=== PATIENT | female | born 1940 | race Caucasian/White ===

== ENCOUNTER 2016-11-24 12:39 | Day surgery (SDC) | payer MEDICARE ==
[~2016-11-24 12:39] MED LIST: CHOL200047 PO; GING250C PO; GLUC100016 PO; LACT1CAP65 PO; LEVO88TA4 PO; Lidocaine Topical 2% 30 mL Jelly ONE; MAGN300C PO; OMEG500C PO; OMEP20TA86 PO
[2017-01-12] MEDS ORDERED: ASPI-973 PO (10:32)
[2017-01-12] MEDS ORDERED: MULT-1018 PO (10:32)
[2017-01-12] MEDS ORDERED: ASCO-294 PO (10:32)
== END 2016-11-24 23:59 | disposition home or self-care (01) ==
LOC: END 12:39
PROVIDERS: ATTEND Surgery
DX: K44.9 Diaphragmatic hernia without obstruction or gangrene (principal); K21.9 Gastro-esophageal reflux disease without esophagitis

== ENCOUNTER 2017-01-13 05:32 | Day surgery (SDC) | payer MEDICARE ==
[2017-01-13] VITALS (12 sets, daily range): BP systolic 127–150; BP diastolic 62–94; PULSE 60–81; RESP 11–18; O2SAT 93–99
[~2017-01-13] VITALS: Ht 177.8 cm; Wt 84.5 kg
[2017-01-13] MEDS: Lactated Ringer's 1,000 ML IV SCH ×3 (05:00→08:13)
[~2017-01-13 05:32] MED LIST changes: +ASCO-294 PO; +ASPI-973 PO; -CHOL200047 PO; -LACT1CAP65 PO; -Lidocaine Topical 2% 30 mL Jelly ONE; -MAGN300C PO; +MULT-1018 PO
[2017-01-13] MEDS ORDERED: Lidocaine PF 1% 30 mL Inj ONE (05:33)
[2017-01-13] MEDS ORDERED: Rocuronium 10 mg/mL 5 mL Inj ONE (05:33)
[2017-01-13] MEDS ORDERED: MetoCLOpramide 5 mg/mL 2 mL Inj ONE (05:33)
[2017-01-13] MEDS ORDERED: Succinylcholine Chloride 20 mg/mL 5 mL Inj ONE (05:33)
[2017-01-13] MEDS ORDERED: Dexamethasone 4 mg/mL Inj ONE (05:33)
[2017-01-13] MEDS ORDERED: fentaNYL-PF 50 mCg/mL 2 mL Inj ONE (05:33)
[2017-01-13] MEDS ORDERED: Vasopressin 20 Unit/mL Inj ONE (05:33)
[2017-01-13] MEDS ORDERED: HYDROmorphone 2 mg/mL Inj ONE (05:33)
[2017-01-13] MEDS ORDERED: hydrALAZINE 20 mg/mL Inj ONE (05:33)
[2017-01-13] MEDS ORDERED: Propofol 10,000 mCg/mL 20 mL Inj ONE (05:33)
[2017-01-13] MEDS ORDERED: CeFAZolin Inj 2 GM in IV Premix 1 EACH IV ONE (06:00)
--- NOTE | 2017-01-13 07:19 | PCM.HPANE ---
Patient Data Date of Service: Jan 13, 2017 Surgeon Admitting Provider: Attending Provider:Libby Eubanks MD Primary Care Physician:Manuelito Marr MD Other Provider:Chuck Bowles Anesthesia Reason for Visit Laparoscopic Hiatal Hernia Repair Ht/WT & BMI Height (Feet): 5 Height (Inches): 10.00 Weight (Kilograms): 82.6 Body Mass Index 26.00 Allergies Coded Allergies: cortisone (Unverified Allergy, Unknown, UNKNOWN, 01/12/17) Past Anesthesia History Anesthesia History: Denies:: Abnormal Airway, Anesthesia Reactions, Difficult Intubation, Fam Anesthesia Reaction, Fam Malignant Hypertherm, Malignant Hyperthermia Diabetes History Hx Diabetes?: No MRSA MRSA: No Medications Blood Thinner: Aspirin Hypertension Medication: No Home Meds Incl Beta Chidi: No Reported Medications Ascorbate Calcium (Vitamin C)500 Mg [id number] Mg PO DAILY 01/12/17 Aspirin 81 Mg Ndubed38 Mg PO DAILY Ref 0 01/12/17 Multivitamin (Multi Vitamin Daily)1 Each Tablet1 Each PO DAILY 30 Days Ref 0 01/12/17 Levothyroxine 88 Mcg Htndwy72 Mcg PO DAILY Ref 0 03/16/16 [place]-3 Fatty Acids (Fish Oil)500 Mg Capsule.dr500 Mg PO DAILY 02/04/16 Glucosamine Sulfate 2Kcl (Glucosamine)1,000 Mg Tablet1,000 Mg PO BID 02/27/14 Kay Root (Kay)250 Mg Obxyypj393 Mg PO DIRECTED 02/27/14 Omeprazole 20 Mg Tablet.dr40 Mg PO DAILY 30 Days Ref 0 02/27/14 Discontinued Reported Medications Lactobacillus Acidophilus (Probiotic)1 Each Capsule1 Each PO DAILY 03/16/16 Cholecalciferol (Vitamin D3) (Vitamin D3)2,000 Unit Capsule2,000 Unit PO DAILY 03/16/16 Magnesium Oxide/Mag Aa Chelate (Magnesium 300 mg Capsule)300 Mg Boriltv296 Mg PO DAILY 03/16/16 History History of ENT Problems?: Yes HEENT History: Positive for:: Cataracts (S/P B/L EXTRACTIONS) Hearing Problem TMJ Denies:: Abnormal Airway Difficult Intubation Dysphagia Sinus Problem Denture Type: Partial- Upper Teeth Condition: Tooth Decay Missing Teeth Other HEENT Pertinent History: S/P FACELIFT Hx of Heart Problems?: No Cardiovascular History: Denies:: AICD Atrial Fibrillation Chest Pain Heart Murmur Hypertension Pacemaker Rheumatic Fever Valvular Heart Disease Hx of Respiratory Problem?: Yes Respiratory History: Denies:: Asthma COPD 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) Cough Dyspnea Emphysema Hemoptysis Pneumonia Tuberculosis Use of C-PAP Machine Hx Neurologic Problems?: No Neurological History: Denies:: Alzheimer's Disease CVA Dementia Dizziness Headaches Seizures TIA Other Neurological Pertinent: bilateral hearing loss utilizes hearing aids, but not present today Hx of GI Problems?: Yes Gastrointestinal History: Positive for:: Gastroesphageal Reflux Hiatal Hernia Hx of Problems?: No Genitourinary History: Denies:: HX of Hemodialysis Kidney Stones Urinary Tract Infection Female Hx: Denies:: Currently Endometriosis Pelvic Inflammatory Problems with Breasts? Skin History: Denies:: History Skin Disorders? Pressure Ulcers Hx Musculoskeletal Problems?: Yes Musculoskeletal History: Positive for:: Musculoskeletal Trauma (HX RT ROTATOR CUFF TEAR, S/P R KNEE SCOPE) Denies:: Back Injury Joint Replacement Hx of Psycho/Social Problems?: No Psycho Social History: Denies:: Anxiety Bipolar Disorder Hx Depression Hx Surgeries?: Yes (HEMORRHOIDECTOMY,KNEE SCOPE,FACELIFT,B/L CATARACTS) Hx Any Other Health Problems?: No Other History: Positive for:: Cancer (CUTANEOUS FOLLICULAR LYMPHOMA) Hospitalization Denies:: Endocrine Disease Thyroid Disease Hx Diabetes: No Hx Alcohol Use: Yes (VERY OCC)Hx Substance Use: No Smoking Status: Former Smoker Have You Smoked inLast 12 mo: NoApprox How Many Cigarettes/day: 25YR HX Stop/Bang Treated for Sleep Apnea?: No Do You Have a CPAP Machine?: No S-Snoring: Do You Snore Loudly: No T-Tired: feel tired, fatigued: No O-Obsered: Observed not breath: No P-Blood Pressure: treated: No B- Body Mass Index > 35 kg/m2: No A- Age over 50: Yes N- Neck Large Circumference: No G- Gender Male: No JESUS Total Score: 1 JESUS Risk Assessment: Low Risk, <3 Yes Risk Assessment Category Category 1A: Patient has history of documented sleep apnea, and HAS NOT received any narcotic, sedative or anesthesia administration during this stay. Category 1B: Patient has history of documented sleep apnea, and HAS received any narcotic , sedative or anesthesia administration during this stay Category 2: Patient has SUSPECTED Obstructive Sleep Apnea, and HAS received any narcotic , sedative or anesthesia administration during this stay. Category 3: Patient has SUSPECTED Obstructive Sleep Apnea and HAS NOT received narcotic, sedative or anesthesia administration during this stay. Category 4: Outpatient in Procedural Areas with known sleep apnea or who screen positive for High Risk via the STOP/BANG questionnaire. Exam Exam Vital Signs Vital Signs Date Time Temp Pulse Resp B/P Pulse Ox O2 Delivery O2 Flow Rate FiO2 01/13/17 06:01 36.3 60 16 128/84 98 Room Air General Appearance: Alert, Oriented X3, Cooperative, No Acute Distress HEENT/AIRWAY: MP 2, Neck Movement (FROM), Mouth Opening (>3), Other (TMD>3) Lungs: Normal Air Movement, Wheezes (mild) Heart: Exam Unremarkable, Regular Rate/Rhythm, Normal S1, Normal S2, No Murmurs /Rubs/Gallops Meds/Labs/Diagnostics Admission Meds Current Medications Lactated Ringer's (Lr) 1,000 ml @ 120 mls/hr Q8H20M IV Last administered on t 05:36; Start 01/13/17 at 05:00; Stop 01/13/17 at 13:19 Plan Impression Patient chart reviewed, patient interviewed and anesthestic plan with risks, benefits, and alternatives discussed, and informed consent obtained. ASA Physical Status: ASA2 Mod Systemic Disease Anesthetic Plan: GA Bene/Risks/Altern/Consents: Yes HP Complete Prior to Induction: Yes Other Consider epidural for post-op pain management. Chandan Cook MD Jan 13, 2017 07:19
[2017-01-13] MEDS ORDERED: Lactated Ringer's 1,000 ML IV SCH (08:35)
[2017-01-13] MEDS ORDERED: EPHEDrine Sulfate 50 mg/mL Inj IVPUSH PRN (08:35)
[2017-01-13] MEDS ORDERED: Lactated Ringer's 500 ML IV PRN (08:35)
[2017-01-13] MEDS ORDERED: MetoCLOpramide 5 mg/mL 2 mL Inj IVPUSH PRN ×2 (08:35→10:45)
[2017-01-13] MEDS ORDERED: Phenylephrine 10,000 mCg/mL Inj IVPUSH PRN (08:35)
[2017-01-13] MEDS ORDERED: Dexamethasone 4 mg/mL Inj IVPUSH PRN (08:35)
[2017-01-13] MEDS ORDERED: Bupivacaine-MPF 0.5% W/EPI 30 mL Inj INFILTRATE ONE (08:35)
[2017-01-13] MEDS ORDERED: Ondansetron 2 mg/mL 2 mL Inj IVPUSH PRN ×2 (08:35→10:45)
[2017-01-13] MEDS ORDERED: HYDROmorphone 1 mg/mL Inj IVPUSH PRN (08:35)
[2017-01-13] MEDS ORDERED: fentaNYL-PF 50 mCg/mL 2 mL Inj IVPUSH PRN (08:35)
[2017-01-13] MEDS ORDERED: Lactated Ringer's 1,000 ML IV ONE (10:44)
[2017-01-13] MEDS ORDERED: Acetaminophen 32 mg/mL 5 mL Liquid PO SCH (10:45)
[2017-01-13] MEDS ORDERED: ProchlorPERazine 5 mg/mL 2 mL Inj IVPUSH PRN (10:45)
--- NOTE | 2017-01-13 10:53 | PCM.SURGOP ---
Surgical Operative Report Date of Service: Jan 13, 2017 Pre Operative Diagnosis GERD Post Operative Diagnosis GERD Procedure: Laparoscopic hiatal hernia with Toupet fundoplication Surgeon and House Wirer: Surgeon: Libby Eubanks MD Assistants:Kasandra Murray MD; Art Torres PA-C; Marisol Medina MS3 Indication for Procedure This is a 76-year-old female with a history of gastroesophageal reflux disease, Cortez's esophagus without dysplasia, and a small hiatal hernia. Her symptoms were refractory to PPIs and therefore she underwent preoperative testing which revealed normal esophageal motility on manometry, a hiatal hernia with severe reflux on upper GI fluoroscopy, a hiatal hernia, Reece's erosions, and gastric polyps on upper endoscopy, and the patient refused to undergo pH testing due to the need to stop her PPIs, which she described as unbearable. Due to her overall constellation of classic reflux symptoms refractory to medical and lifestyle management, and anatomy and physiology as described above , she is scheduled for hiatal hernia repair. Findings: 1. Moderate hiatal hernia with inflammation of the GE junction. 2. Toupet 270 posterior fundoplication. Procedure Details The patient was brought to the operating room and placed in supine position. General endotracheal anesthesia was smoothly induced. A warming blanket and SCDs were placed. The patient was repositioned into low lithotomy with the left arm tucked. Antibiotics were infused. The operative field was prepped and draped in sterile fashion. A bougie was advanced to 20 cm. A pause was performed to confirm the correct patient, procedure, and site. The abdomen was accessed using a Veress needle in the left upper quadrant after controlling the fascia and was insufflated. An 11 mm Optiview port was inserted and intraperitoneal insufflation began. An 11 mm port was then placed in the mid abdomen just to the left of midline. The 5 mm port was placed in the mid abdomen laterally on the left. A 5 mm flexible liver retractor was placed through a 5 mm port in the right lateral abdomen. A final 5mm trocar was placed in the right upper quadrant. Inspection of the anatomy of the hiatal hernia revealed it to be a small paraesophageal hernia. The stomach was identified and the phrenogastric ligament was taken down sharply. The short gastrics were then taken down using LigaSure device. Dissection proceeded at the hiatus starting on the left. The mediastinum was entered on the left. Both vagi were identified and preserved. The gastrohepatic ligament was then divided up to the right denton and the right sided dissection was completed with care taken to preserve the entire denton. There was a small accessory hepatic artery which was divided with the LigaSure As the location of it prevented formation of the fundoplication and dissection of the crura. Once the esophagus was dissected circumferentially, the hiatal hernia was reduced and a Jake drain was then placed around the esophagus at the gastroesophageal junction for retraction to facilitate a more proximal esophageal dissection. This proceeded proximally until there was 5 cm of intra- abdominal esophagus. 3 interrupted 2-0 silk stitches were placed in the posterior crura to reapproximate them without tension. Attention was turned to the to Toupet fundoplication. A Toupet was chosen due to data demonstrating that it is equivalent for postoperative reflux but improves postoperative dysphagia and gas bloat, and the risk of bougie placement is avoided. A marking stitch was placed on the posterior fundus, 3 cm distal to the gastroesophageal junction and 2 cm posterior to the greater curvature. This was brought around posteriorly to align the geometry of the fundoplication. The first stitch was placed in the fundus just proximal to the marking stitch, to the esophagus at and 11 o'clock position, and to the right denton at the 11 o'clock position. The second stitch was placed from the posterior aspect of the right fundoplication to the bilateral crura posteriorly. The [place] drain was removed. Two additional stitches were then placed from the right side of the fundoplication to an 11 o'clock position on the esophagus. Care was taken to avoid inclusion of the anterior vagus in the stitches. The marking stitch was removed. Attention was then turned to the left side of the wrap. An appropriate position on the fundus was chosen to create symmetrical geometry of the fundoplication. The first stitch on the left was placed from the wrap to the esophagus to the denton, again with care taken to avoid inclusion of the anterior vagus in the stitch. Two additional sutures were then placed from the wrap to the esophagus, each 1 cm distal to the previous one. A final coronal stitch was placed from the left posterior fundoplication to the posterior aspect of the left denton. Once the procedure was complete, the 11 mm port site in the left mid abdomen was closed with an interrupted 2-0 PDS using a fascial closure device. The remaining ports were removed under direct vision and the abdomen was desufflated. 0.5% Marcaine with epinephrine was infused at all port sites. Skin was closed with 4-0 Monocryl. Sterile dressings were placed. All sponge, instrument, and needle counts were correct at the end of the procedure. The patient was awakened from general anesthesia and taken to the postoperative care unit in good condition. Complications There were no periprocedural complications identified. Surgical Specimen Removed: No Specimen sent to Pathology: No Anesthetic Plan: GA Grafts, Implants: None Output, Estimated Blood Loss: 5 (ml) Blood Administration during villegas: No Libby Eubanks MD Jan 13, 2017 10:53
[2017-01-13 11:38] LABS: APPEARANCE,URINE HAZY (CLEAR,HAZY); COLOR,URINE STRAW (YELLOW); PH,URINE 5.5 (5.0-8.0)
[2017-01-13 11:39] LABS: OCCULT BLOOD,URINE NEGATIVE (NEGATIVE); UROBILINOGEN,URINE NORMAL (NORMAL)
[2017-01-13 11:54] LABS: Mean Corpuscular Hemoglobin 31.7 pg (27.0-35.0); Mean Corpuscular Volume 96.5 fL (81-100)
[2017-01-13] MEDS: Dextrose 5% Lactated Ringer's 1,000 ML IV SCH ×2 (12:11→23:15)
[2017-01-13] MEDS: Heparin 5,000 Unit/mL Inj SUBQ SCH ×4 (12:11→20:15)
--- NOTE | 2017-01-13 13:11 | PCM.ANEP1 ---
Post Anesthesia PACU Phase 1 Assessment Date of Service: Jan 13, 2017 Vital Signs Vital Signs Date Time Temp Pulse Resp B/P Pulse Ox O2 Delivery O2 Flow Rate FiO2 01/13/17 11:48 36.7 70 18 135/83 95 Room Air 01/13/17 11:23 67 16 135/81 94 Room Air 01/13/17 11:11 70 18 134/62 94 Room Air 01/13/17 11:05 69 16 127/70 93 Room Air 01/13/17 10:55 69 11 144/81 99 Simple Mask 10 01/13/17 10:51 71 12 136/81 99 Simple Mask 10 01/13/17 10:45 73 13 135/74 98 Simple Mask 10 01/13/17 10:41 36.3 72 12 137/79 98 Simple Mask 10 01/13/17 06:01 36.3 60 16 128/84 98 Room Air Anesthetic Administered: GA Level of Alertness: Awake, talking ORDOÑEZ's with Equal Strength: Yes Pain: No Pain Scale Score: 0 Nausea or Vomiting: No CV Function & Hydration Stable: Yes Airway Device: none in PACU Oxygen Delivery: Simple Mask Lungs: Normal Air Movement, Wheezes (mild) PACU Phase 2 Assessment Complications: No Follow up Care: N/A Patient Instructions Provided: N/A Comments 01/13/17 11:48 36.7 70 18 135/83 95 Room Air Chandan Cook MD Jan 13, 2017 13:11
--- NOTE | 2017-01-13 14:00 | NUR ---
Admit Patient came to room on room air with IV infusing. Patient is alert and oriented X3, [place], and takes a minute to reply. SCDs in place. Oriented to room. Call light within reach. Patient denies chest pain, SOB, and N/V. Reports that her chest feels a bit heavy but it not bothersome. Lungs sound clear. SPO2 WNL. Normal work of breathing. Hourly rounding continues. Addendum: 01/13/17 at 1521 by LINDA PAULINO RN Patient denies abdominal pain. Able to transfer from gurney to bed with minimal assistance. Dressings over lap sites intact with minimal brown drainage on all 5 band aids.
[2017-01-13] MEDS: oxyCODONE 1 mg/mL 5 mL Liquid PO PRN ×2 (16:43→23:14)
[2017-01-13] MEDS: Acetaminophen 32.5 mg/mL 20 mL Liquid PO SCH ×2 (17:33→23:12)
--- NOTE | 2017-01-13 18:41 | NUR ---
Discomfort Patient reported a discomfort in her upper abdomen/lower chest that she described to be similar to acid reflux. Educated patient on her surgery and explained that they went in to fix her hernia and because of the location of the repair she could have some discomfort. Administered pain medication and scheduled tylenol. Patient now denies any pain. Will continue to monitor for discomfort.
[2017-01-14] VITALS (7 sets, daily range): BP systolic 112–183; BP diastolic 71–109; PULSE 74–85; RESP 16–22; O2SAT 97–98
[2017-01-14] MEDS: Heparin 5,000 Unit/mL Inj SUBQ SCH ×2 (04:49→12:07)
[2017-01-14] MEDS: Acetaminophen 32.5 mg/mL 20 mL Liquid PO SCH ×3 (04:50→16:47)
[2017-01-14 05:36] LABS: Mean Corpuscular Volume 94.7 fL (81-100)
--- NOTE | 2017-01-14 05:55 | NUR ---
PAIN/NAUSEA PT REPORTED NAUSEA AND PAIN EARLY IN SHIFT, ZOFRAN GIVEN WITH + EFFECTS. PT REC'D ROUTINE TYLENOL AND REQUESTED OXYCODONE X1. PT REPORTED A SEVERE HEADACHE, WHEN ASKED IF PT DRINKS COFFEE, SHE SAID YES 3-4 TIMES PER DAY. COFFEE GIVEN AND HER HEADACHE HAS RESOLVED. NAUSEA HAS BEEN RESOLVED. PT GOETZ REMOVED AND PT HAS BEEN UP TO EDGE OF BED SITTING, TOLERATING WELL. CARE CONTINUES
--- NOTE | 2017-01-14 07:51 | PCM.PNSURG ---
Subjective Visit Information: Reason for Visit Laparoscopic Hiatal Hernia Repair Surgery/Surgery Date LAPROSCOPIC HIATAL HERNIA REPAIR 01/13/17 Post-Op Day # Date of Admission: Hospital Day # Subjective: Stable overnight. Tolerated CLD. Mild epigastric discomfort. Earl removed this am. >1L UOP. 580 PO. Objective Vital Sign- Last 8 Hours Date Time Temp Pulse Resp B/P Pulse Ox O2 Delivery O2 Flow Rate FiO2 01/14/17 04:53 36.7 82 18 112/71 97 Room Air 01/14/17 00:41 36.7 84 16 132/81 98 Room Air Intake and Output- Last 8 Hour 01/14/17 Cumulative From/Thru 07:00 01/12/17 10:32 - 01/14/17 05:53 Intake Total 380 ml 2900 ml Output Total 1500 ml 2105 ml Balance -1120 ml 795 ml Intake Oral 380 ml 580 ml IV Total 2320 ml Output Urine Total 1500 ml 2100 ml Estimated Blood Loss 5 ml # Bowel Movements 0 0 General: Alert, Oriented X3, Cooperative, No Acute Distress Abdomen: Soft, Appropriately tender, Non-distended Result Diagram: 01/14/17 0450 01/14/17 0450 Assessment & Plan Impression 76yof POD1 lap hiatal hernia repair doing well. Problems: Plan FLD d/c MIVF Oral analgesia Nutrition consult for liquid/pureed diet Ambulate Await void Likely discharge early afternoon. Libby Eubanks MD Jan 14, 2017 07:51
[2017-01-14] MEDS ORDERED: OXYC5SOL11 PO (07:52)
--- NOTE | 2017-01-14 07:54 | PCM.DISURG ---
Surgical Discharge Instruction Date of Service Jan 14, 2017 Dates of Hospitalization Date of Hospital Admission Providers Admitting Physician: Primary Care Physician: Manuelito Marr MD Attending Physician: Libby Eubanks MD Discharge Diagnosis Discharge Diagnosis GERD Post Operative diagnosis GERD Diet Discharge Diet: Other (Liquid/pureed. All medications should be crushed or liquid. ) Activity Discharge Activity-General: Be up and about, No lifting >15 pounds for 2 weeks Dressing and Incisional Care Dressing Care: Allow Steri Stripes to fall off, Remove outer dressing after 24 hrs Hygiene: May shower Additional Instructions Discharge Instructions All medications should be crushed or liquid. Follow Up Plan Follow Up Plan F/U with Dr. Eubanks in 2 weeks. [phone] Call your provider for: Fever, Chills, Shortness of breath, Increasing abdominal pain, Nausea, Discharge @ incision, pus discharge Libby Eubanks MD Jan 14, 2017 07:54
--- NOTE | 2017-01-14 08:45 | NUR ---
Status 0800 surgeon notified that catheter removed at 0500, pt to urinate. No c/o pain aside from some chest discomfort pt attributes to "reflux". Taking clear liquids. IS at bedside with plans to ambulate. Md to assess.
[2017-01-14] MEDS: oxyCODONE 1 mg/mL 5 mL Liquid PO PRN ×3 (09:38→16:51)
--- NOTE | 2017-01-14 10:23 | NUR ---
RD Diet education completed. Pureed diet education completed. Please see RD: Dietary Teaching Record under Care Activity for further information regarding education.
--- NOTE | 2017-01-14 10:59 | NUR ---
Pain About 0930 pt began having 10/10 pain to right flank/shoulder and epigastrum following urination and sitting in chair. Pt able to urinate 500ml. BP elevated. EKG ordered and normal. Dr. Jason mann and notified of episode of pain. Oral pain meds given and pain decreased to 2/10 after about 30 minutes. Pt stable in bed. Dr jason prater pt at [facility] at 1030 Addendum: 01/14/17 at 1153 by DARRYL TODD RN 1140 pt c/o pain 10/10 to right chest/abdomen after ambulation. Sats 99% on RA. HR 85. RR 24. Surgeon johnathan. Addendum: 01/14/17 at 1206 by DARRYL TODD RN Notified surgeon of pain on right side 10/10 post ambulation, pt moaning and clutching right side. incision intact lung sounds clear bilaterally, sats stable. Per surgeon, to continue to monitor and will order labs/cxr. To provide IV pain meds prn. At 1200 BP 150/90 sats 98% pain level 4/10. Pt no longer moaning or clutching side and appearing comfortable again. Will continue to monitor. Addendum: 01/14/17 at 1337 by DARRYL TODD RN Dr. Eubanks at bedside assessing pt. Pt stable resting in bed at this time.
--- NOTE | 2017-01-14 14:21 | DRSVH ---
PROCEDURE: X-RAY CHEST ONE VIEW, PORTABLE ([id number]) INDICATIONS: 76 year-old female with chest and shoulder discomfort for one day. TECHNIQUE: One view of the chest was acquired. COMPARISON: None. FINDINGS: Surgical changes and devices: None. Lungs and pleura: No pleural effusions or pneumothorax. Lungs are clear. Mediastinum: Mediastinal contours appear normal. Heart size is normal. Bones and chest wall: No suspicious bony lesions. Overlying soft tissues appear unremarkable. IMPRESSION: No acute cardiopulmonary disease. Dictated by: Ayo Anthony M.D. on 01/14/2017 at 13:19 Approved by: Ayo Anthony M.D. on 01/14/2017 at 13:19
--- NOTE | 2017-01-14 16:16 | NUR ---
Status Pt seen at bedside by surgery. Stable since 2 episode of pain. to d/c.
--- NOTE | 2017-01-14 19:01 | NUR ---
Discharge Pt dc'd in with family at 1900. Stable and w/o complaints. All discharge paperwork reviewed and pt verbalized understanding. All belongings with pt.
== END 2017-01-14 19:00 | disposition home or self-care (01) ==
LOC: SAS 05:32 → UNDOADMOB 11:39 → OSC 11:39 → SAS 01-14 19:00
PROVIDERS: ATTEND Surgery
DX: K44.9 Diaphragmatic hernia without obstruction or gangrene (principal); K21.9 Gastro-esophageal reflux disease without esophagitis; K22.70 Barrett's esophagus without dysplasia; E03.9 Hypothyroidism, unspecified; E78.5 Hyperlipidemia, unspecified; Z87.891 Personal history of nicotine dependence
CPT/HCPCS: 36415; 43281; 71010; 80048; 81000; 85027; 93005; 94640; 94664; J0171; J0330; J0360; J0690; J1100; J1170; J1644; J1885; J2250; J2405; J2765; J3010; J7120

== ENCOUNTER → 2017-04-19 | Day surgery (SDC) | payer MEDICARE ==
[~2017-04-19] VITALS: Ht 177.8 cm; Wt 78.0 kg
[~2017-04-19] MED LIST changes: +0.9% Sodium Chloride 1,000 ML IV PRN; -ASCO-294 PO; -OMEG500C PO; -OMEP20TA86 PO; +RANI300T4 PO; +Sodium Chloride LOK Flush 10 mL Syringe IV PRN; +fentaNYL-PF 50 mCg/mL 2 mL Inj IVPUSH PRN
[2017-04-19 14:26] VITALS: BP 126/78; PULSE 63; RESP 14; O2SAT 98
[2017-04-19 16:21] VITALS: BP 131/83; PULSE 70; RESP 16; O2SAT 100
[2017-04-19 16:31] VITALS: BP 131/81; PULSE 66; RESP 16; O2SAT 99
--- NOTE | 2017-04-20 00:52 | ENDO ---
[address] [address] ENDOSCOPY PROCEDURE PATIENT: CHA FREEMAN : 1940 MR#: [id number] ADMIT: 04/19/2017 JOB ID: [id number] DATE OF PROCEDURE: 04/19/2017 PRIMARY PROVIDER: Desean Marr MD. PROCEDURE: Esophagogastroduodenoscopy with brushing. INDICATION: A 77-year-old female with a history of reflux and Cortez's post Jorge Luis fundoplication. She continues to struggle with reflux, but has attenuated these symptoms to some degree with H2 receptor antagonist. Unfortunately, she continues to have significant symptoms with dysphagia and a repeat examination is pursued endoscopically. EQUIPMENT: [id number]. SEDATION: 1. Versed 5 mg. 2. Fentanyl 100 mcg. COMPLICATIONS: None identified. PROCEDURE INFORMATION: After the risks and benefits were explained, written and verbal informed consent was obtained. The patient was brought into the endoscopy suite and placed into the left lateral decubitus position. Sedation was achieved as above. The scope was introduced into the mouth the bite block and advanced to the second portion of the duodenum. The scope was slowly withdrawn to carefully examine the mucosa for any defects or lesions. Retroflexed views were accomplished in the stomach. The stomach was decompressed. The scope was removed from the patient who tolerated the procedure well. FINDINGS: 1. Duodenum: No pathology identified from the bulb through to the second portion. 2. Stomach: No outlet obstruction. No ulcers. No mass lesions. Retroflexed views of the LES were difficult to acquire, but demonstrated post fundoplication anatomy. 3. Esophagus: The diaphragmatic pinchcock and fundoplication were at approximately 40 cm. The GEJ was at about 38 cm from the incisors. There was again an approximately 2 cm segment of Cortez's as previously described. This was not inflammatory and there were no associated strictures or mass lesions here. However, in the mid esophagus there was circumferential white and off-white adherent plaque, and this suggested the possibility of diffuse esophageal candidiasis. I took a brushing of this and submitted for RIVAS wet prep. ENDOSCOPIC DIAGNOSES: 1. Mild Jorge Luis fundoplication slippage. 2. Cortez's esophagus. 3. Probable esophageal candidiasis. RECOMMENDATIONS: 1. Await RIVAS wet prep. 2. If this is confirmed positive, then I would recommend a 21 day course of fluconazole. 3. The patient will be sent with a prescription today and is encouraged to call our office tomorrow for the results and confirmation as to whether she should start therapy, yes or no.
== END | disposition home or self-care (01) ==
LOC: END 00:32
PROVIDERS: ATTEND Internal Medicine Gastroenterology
DX: K22.70 Barrett's esophagus without dysplasia (principal); K44.9 Diaphragmatic hernia without obstruction or gangrene; K21.9 Gastro-esophageal reflux disease without esophagitis; E03.9 Hypothyroidism, unspecified
CPT/HCPCS: 43235; 87220; G0500; J2250; J3010; J7030